=== PATIENT | male | born 1970 | race Caucasian/White ===

== ENCOUNTER 2019-05-14 11:20 | Emergency (ER) | payer OTHER, SELFPAY ==
--- NOTE | ~2019-05-14 | XR_ITS ---
XR abdomen/kub 1V 05/14/2019 11:50 Indication: Left flank pain and hematuria Procedure: KUB Comparison: No prior studies for comparison. Findings: Left pelvic calcification overlying the sacrum/coccyx measuring 5 mm. This is suspicious fo r a UVJ stone. There are additional pelvic calcifications, likely pelvic phleboliths. Bowel gas patte rn is nonobstructive. Impression: 1: Possible left UVJ stone measuring 5 mm. Reviewed, dictated and finalized at location A. 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
[2019-05-14 11:27] VITALS: BP 128/84; PULSE 77; RESP 16; TEMP 36.4; O2SAT 100
--- NOTE | 2019-05-14 11:28 | ED.GENADULT ---
HPI - General Adult General Chief complaint: Urogenital-Male Stated complaint: abdominal pain/Pos UTI Time Seen by Provider: 05/14/19 11:40 Source: patient Mode of arrival: ambulatory Limitations: no limitations History of Present Illness HPI narrative: 48-year-old male patient presents to the [facility] with complaints of left flank pain that radiates down to the left groin. Patient states he has had some blood in his urine this week. Patient states he does have a history of kidney stones and has been having this pain for about a week and a half now. Patient states he did pass some kidney stones about 3 or 4 days ago and states that his urine started to clear up then and the pain did ease so he thought that he had passed some of that it was over. Patient states the pain started up again about 2 days ago and he is concerned that he might have a UTI caused by the kidney stones. Denies any fevers, nausea, vomiting or diarrhea. Related Data Allergies Allergy/AdvReac Type Severity Reaction Status Date / Time No Known Allergies Allergy Unverified 11/28/17 09:28 Review of Systems Review of Systems: Narrative: CONSTITUTIONAL: Denies fever, chills, or sweats. EYES: Denies visual changes, redness, or discharge. ENT: Denies rhinorrhea, congestion, sore throat, or otalgia. CARDIOVASCULAR: Denies chest pain, palpitations, or edema. RESPIRATORY: Denies cough or dyspnea. GASTROINTESTINAL: Denies abdominal pain, nausea, vomiting, or diarrhea. GENITOURINARY: Positive dysuria and hematuria. SKIN: Denies rash or itching. MUSCULOSKELETAL: Positive left flank pain that radiates to the left groin joint pain, or myalgia. NEUROLOGIC: Denies headache, numbness, or weakness. PSYCHIATRIC: Denies anxiety or depression. PMFSH Social History Social History Smoking status: Former smoker Smoking end date: 03/09/13 Alcohol intake: never Comments At the time of my signature I agree with nursing past medical history, surgical, social, and family history. There is no relevant family history pertinent to the presenting complaint. Exam Narrative: Exam Narrative: GENERAL: Well-appearing, well-nourished, and in no acute distress. HEAD: Normocephalic, atraumatic. EYES: PERRLA and EOMI. ENT: Nares clear, no rhinorrhea or epistaxis. Mucous membranes moist. NECK: Supple. No lymphadenopathy CHEST: Clear to auscultation. No respiratory distress. HEART: Regular rate and rhythm. No murmur heard. Normal peripheral pulses. ABDOMEN: Soft, flat, nondistended. No guarding, rebound tenderness, or rigid. No pulsatilla masses. Bowel sounds present in all four quadrants. No organomegaly. Negative Villalta?s sign. No periumbicial tenderness. No Supra public tenderness or distension. Good femoral pulses bilaterally. No hernia noted. No scars or surface trauma. No CVA tenderness on percussion EXTREMITIES: Normal range of motion. No edema. SKIN: Warm, dry, no rash. NEURO: No focal deficits. Alert and oriented x3. Course Reevaluation(s) Reevaluation #1: Notify patient that it does appear that he is got a UVJ stone that is most likely causing his symptoms. Discussed with patient that these do have the potential to be obstructive. Discussed with patient that we will go ahead and give him some [place] for his pain as well as some Flomax to see if he is able to pee it out but if he does not feel like the pain is moving and continues to have worsening pain and he would need to go the ER for further evaluation to see if this is obstructing. Patient verbalized understanding denies any other questions or concerns at this time a copy of patient's x-ray results were provided to them today. Date: 05/14/19 Time: 12:06 Vital Signs Vital signs: Vital Signs Temperature 36.4 C 05/14/19 11:27 Pulse Rate 77 05/14/19 11:27 Respiratory Rate 16 05/14/19 11:27 Blood Pressure 128/84 05/14/19 11:27 Pulse Oximetry 100 05/14/19 11:27
== END 2019-05-14 12:10 | disposition home or self-care (01) ==
PROVIDERS: Emergency Provider Nurse Practitioner Family; PCP Family Medicine
DX: N20.1 Calculus of ureter (principal); Z87.891 Personal history of nicotine dependence
CPT/HCPCS: 74018; 81003; 99213; G0463

== ENCOUNTER 2019-05-14 23:46 | Emergency (ER) | payer OTHER, SELFPAY ==
--- NOTE | ~2019-05-14 | CT_ITS ---
EXAMINATION: CT abdomen pelvis wo con DATE: 05/15/2019 00:30 INDICATION: Left flank pain TECHNIQUE: Computed tomography (CT) of the abdomen and pelvis was performed without intravenous contr ast. The dose-length product was 318.35 mGy-cm. Automated exposure control and iterative reconstructi on technique were employed. COMPARISON: None. FINDINGS: Lung bases are unremarkable. No significant pleural or pericardial effusion. Heart size is normal. There is a 6 mm left UVJ stone with mild hydroureteronephrosis. There is periureteral and per inephric edema. Fatty infiltration of the liver. Spleen, pancreas, adrenal glands are unremarkable. Probable renal cy sts. Bowel pattern nonobstructive. Normal appendix. No focal bowel abnormality. No free air or free f luid. Mild prostate enlargement. IMPRESSION: 1. 6 mm left UVJ stone with mild hydronephrosis. Reviewed, dictated and finalized at location A.
[2019-05-14 23:50] VITALS: BP 141/97; PULSE 85; RESP 16; TEMP 35.6; O2SAT 100
--- NOTE | 2019-05-15 00:12 | ED.ABDPAIN ---
HPI - Abdominal Pain General Chief Complaint: Abdominal Pain Stated Complaint: right flank pain Time Seen by Provider: 05/15/19 00:01 Source: patient and RN notes reviewed Mode of arrival: ambulatory Limitations: no limitations History of Present Illness HPI narrative: Pt is a 48 y/o male presenting to the ED c/o flank pain. Pt reports he started experiencing lt sided flank pain a week ago that worsened tonight. Pt states he presented to [facility] earlier tonight where he was prescribed Flomax and Hydrocodone after an X-Ray revealed a kidney stone. Pt states he has a Hx of about 7 other kidney stones but notes his last episode was years ago. 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 Pt also reports difficulty urinating. Pt states his PCP is Dr. Londono. Pertinent past history: kidney stones Onset (ago): week(s) (1) Location: L flank Associated symptoms: other (Difficulty urinating) Related Data Allergies Allergy/AdvReac Type Severity Reaction Status Date / Time No Known Allergies Allergy Verified 05/15/19 00:00 Review of Systems Review of Systems: All systems reviewed & are unremarkable except as noted in HPI and below Genitourinary: Genitourinary: Reports other (Difficulty urinating) Musculoskeletal: Musculoskeletal: Reports other (Lt flank pain) PMFSH Past Medical History Medical History Kidney stones x8 Surgical History Surgical History No significant past surgical history Social History Social History Smoking status: Former smoker Smoking end date: 03/09/13 Alcohol intake: never Exam Const: General: cooperative, alert, acute distress and other (Moaning; Rolling around on stretcher) Nutritional Appearance: well nourished Orientation/consciousness: patient oriented x3 Limitations: no limitations HENMT: Mouth: Yes lip normal Resp: Effort & Inspection: normal respiratory effort Auscultation: clear to auscultation bilaterally Cardio: Rate: regular rate Rhythm: regular rhythm GI: GI Palp: Yes Tenderness to palpation present (GI) (Lt flank tenderness) Skin: General skin exam: pallor Neuro: General: patient oriented x3 Cognition (Neuro): normal cognition Speech: normal speech Extrem: General: normal to inspection, full ROM and no clubbing, cyanosis or edema Psych: Mental Status: mental status grossly normal Affect: normal affect Attitude: cooperative Course Course Emergency Course: Patient with improvement in symptoms after Toradol. Pain starting to come back, hydrocodone given. Patient with UVJ stone. Counseled on expectant management. Advised importance of urology follow-up. Reevaluation(s) Reevaluation #1: Daylight Savings Time For Daylight Savings Time Ending in the Fall - Clocks are moved back. For Daylight Savings Time Beginning in the Spring - Clocks are moved ahead. For [facility], the time of change occurs at 0200 hrs. Time is taken from the field observer. This entry on the patient's chart recognizes the change in time reflected during documentation. Example: 2 entries for vital signs may be charted for 0200 hrs. Vital Signs Vital signs: Vital Signs Temperature 96.0 F L 05/14/19 23:50 Pulse Rate 85 05/14/19 23:50 Respiratory Rate 16 05/14/19 23:50 Blood Pressure 141/97 H 05/14/19 23:50 Pulse Oximetry 100 05/14/19 23:50 Temperature 96.0 F L 05/14/19 23:50 Pulse Rate 80 05/15/19 04:39 Respiratory Rate 20 05/15/19 04:39 Blood Pressure 127/80 05/15/19 04:39 Pulse Oximetry 100 05/15/19 04:39 MDM - Abdominal Pain Medical Records Attestation: I reviewed the patient's medical records. Lab Data Attestation: I reviewed the patient's lab results. Result diagrams: 05/15/19 00:08
[2019-05-15 00:15] LABS: Basophils Percent Auto 0.5 % (0.2-1.2); Eosinophils Absolute Auto 0.2 K/mm3 (0-0.3); Eosinophils Percent Auto 2.5 % (0-4.4); Hematocrit 43.2 % (42.0-52.0); Hemoglobin 14.3 g/dL (14.0-18.0); Immature Granulocyte Absolute 0.03 K/mm3 (0.00-0.031); Immature Granulocyte Percent A 0.4 % (0-0.5); Lymphocytes Absolute Auto 3.02 K/mm3 (0.9-3.2); Lymphocytes Percent Auto 38.2 % (18.3-44.2); Mean Corpuscular HGB Conc 33.1 g/dl (32-36); Mean Corpuscular Hemoglobin 28.1 pg (26-34); Mean Corpuscular Volume 84.9 fl (80-100); Mean Platelet Volume 10.7 fl (7.4-10.4); Monocytes Absolute Auto 0.8 K/mm3 (0.1-0.6); Monocytes Percent Auto 9.9 % (2.6-8.5); Neutrophils Absolute Auto 3.8 K/mm3 (1.3-6.7); Neutrophils Percent Auto 48.5 % (45.5-73.1); Platelet Count Result 200 k/mm3 (150-375); Red Blood Count 5.09 M/mm3 (4.6-6.20); Red Cell Distribution Width 12.1 % (11.5-14.5); White Blood Count 7.9 K/mm3 (4.5-10.0)
[2019-05-15] MEDS: KETOROLAC 30 MG/ML VIAL (*BKC) IV PUSH (00:20)
[2019-05-15 00:31] LABS: Alanine Aminotransferase 56 U/L (4-50); Albumin Level 4.3 g/dL (3.5-5.1); Alkaline Phosphatase 62 U/L (38-126); Aspartate Amino Transferase 38 U/L (17-59); Bilirubin,Total 0.3 mg/dL (0.2-1.3); Blood Urea Nitrogen 20 mg/dL (9-20); Carbon Dioxide 27 mmol/L (22-30); Chloride 104 mmol/L (98-107); Estimated CRCL calculation 76 ml/min; Estimated Glomerular Filt Rate > 60; Glucose 129 mg/dL (75-110); Potassium 3.6 mmol/L (3.4-5.0); Sodium 139 mmol/L (137-145)
[2019-05-15 00:45] LABS: Add Urine Microscopic? YES; Appearance Urine Clear (Clear); Bacteria Urine Trace /hpf; Bilirubin Urine Negative (Negative); Blood Urine 3+ (Negative); Color Urine Yellow (Yellow); Glucose Urine UA Negative (Negative); Ketones Urine Negative (Negative); Leukocyte Esterase Ur Negative LEU/UL (Negative); Mucus Urine Rare /lpf; Nitrate Urine Negative (Negative); Protein Urine Negative (Negative); RBC Urine >75 /hpf (0-2); Specific Grav Ur 1.023 (1.001-1.035); Squamous Epithelial Cell Urine Rare /hpf (Few); Urobilinogen Urine Negative mg/dL (<2.0)
[2019-05-15 04:39] VITALS: BP 127/80; PULSE 80; RESP 20; O2SAT 100
[2019-05-15 06:05] VITALS: BP 114/68; PULSE 79; RESP 20; O2SAT 100
== END 2019-05-15 06:06 | disposition home or self-care (01) ==
PROVIDERS: Emergency Provider Emergency Medicine; PCP Family Medicine
DX: N13.2 Hydronephrosis with renal and ureteral calculous obstruction (principal); Z87.442 Personal history of urinary calculi; Z87.891 Personal history of nicotine dependence
CPT/HCPCS: 36415; 74176; 80053; 81001; 85025; 96374; 99284; A9270; J1885

== ENCOUNTER 2019-05-15 14:05 | Day surgery (SDC) | payer OTHER, SELFPAY ==
--- NOTE | ~2019-05-15 | XR_ITS ---
EXAMINATION: XR retrograde pyelogram LT EXAM DATE: 05/15/2019 18:31 INDICATION: Left-sided stone removal. TECHNIQUE: Fluoroscopy used during XR retrograde pyelogram LT performed by Dr. Poli Mead MD. The DAP for this procedure was 0.16 mGym2. Cine run(s) available for review. FINDINGS: Left ureter was cannulated, injected. Image distal portion of the ureter is unremarkable. Correlate with procedure note. IMPRESSION: Fluoroscopy used during XR retrograde pyelogram LT. Reviewed, dictated and finalized at location A.
[2019-05-15 14:24] VITALS: BP 150/90; PULSE 97; RESP 18; TEMP 36.4; O2SAT 98
[2019-05-15 14:45] LABS: Basophils Percent Auto 0.5 % (0.2-1.2); Eosinophils Absolute Auto 0.2 K/mm3 (0-0.3); Eosinophils Percent Auto 2.8 % (0-4.4); Hematocrit 43.5 % (42.0-52.0); Hemoglobin 14.5 g/dL (14.0-18.0); Immature Granulocyte Absolute 0.02 K/mm3 (0.00-0.031); Immature Granulocyte Percent A 0.3 % (0-0.5); Lymphocytes Absolute Auto 2.37 K/mm3 (0.9-3.2); Lymphocytes Percent Auto 30.5 % (18.3-44.2); Mean Corpuscular HGB Conc 33.3 g/dl (32-36); Mean Platelet Volume 10.9 fl (7.4-10.4); Monocytes Absolute Auto 0.9 K/mm3 (0.1-0.6); Monocytes Percent Auto 11.7 % (2.6-8.5); Neutrophils Absolute Auto 4.2 K/mm3 (1.3-6.7); Neutrophils Percent Auto 54.2 % (45.5-73.1); Platelet Count Result 198 k/mm3 (150-375); Red Blood Count 5.18 M/mm3 (4.6-6.20); Red Cell Distribution Width 12.1 % (11.5-14.5); White Blood Count 7.8 K/mm3 (4.5-10.0)
--- NOTE | 2019-05-15 14:50 | ED.ABDPAIN ---
HPI - Abdominal Pain General Chief Complaint: Abdominal Pain Stated Complaint: kidney stone Time Seen by Provider: 05/15/19 14:11 Source: patient Mode of arrival: ambulatory Limitations: no limitations History of Present Illness HPI narrative: A 48 y/o male pt presents to the ED, with c/o constant, severe, lt sided flank and groin pain x 8 days that is worsening. Pt was seen in this ED earlier this AM with the same complaint and had a CT scan that showed a 6 mm UVG stone in his lt ureter. He received Toradol and Hydrocodone in the department and his pain improved and he was discharged home. He has taken the medications he was prescribed (Hydrocodone x 20mg), but states that these are not helping to alleviate his pain. Pt notes standing up and pacing helps to alleviate his pain. He reports having hematuria x 10 days, nausea, and is diaphoretic, but denies V/D, or fever. MD elicited complaint: flank pain (lt side) Pertinent past history: kidney stones Onset (ago): day(s) (8) Pain Consistency: constant (worsening) Location: L flank Severity: severe Radiation: other (lt groin) Relieving factors: movement (standing up and pacing) Associated symptoms: nausea, hematuria and other (diaphoretic) Treatments prior to arrival: other (Hydrocodone x 20mg ) Related Data Allergies Allergy/AdvReac Type Severity Reaction Status Date / Time No Known Allergies Allergy Verified 05/15/19 00:00 Review of Systems Review of Systems: All systems reviewed & are unremarkable except as noted in HPI and below Constitutional: Constitutional: Denies fever(s) and Reports other (diaphoretic) Gastrointestinal: Gastrointestinal: Denies diarrhea, Reports nausea and Denies vomiting Genitourinary: Genitourinary: Reports hematuria (x 10 days), Reports flank pain (lt sided) and Reports other (lt sided groin pain) PMF Past Medical History Medical History (Updated 05/15/19 @ 16:39 by Aldo Newman MD) History of frequent headaches Kidney stones x8 Surgical History Surgical History No significant past surgical history Social History Social History Smoking status: Former smoker Smoking end date: 03/09/13 Alcohol intake: never Gender identity (if verbalized by the patient): Male Exam Const: General: healthy appearing and well developed; No comfortable Nutritional Appearance: well nourished Orientation/consciousness: patient oriented x3 (alert) and Other orientation findings (Alert) Limitations: no limitations HENMT: Head: normocephalic and atraumatic Ears: external ears normal General nose exam: No nasal discharge present and no epistaxis Face and sinus: face symmetric Mouth: Yes lip normal, Yes tongue normal and Yes moist mucous membranes Throat: other (No exudate, no erythema) Eyes: Conjunctivae: conjunctivae normal Sclera: sclerae normal EOM: EOMs intact bilaterally Neck: Neck: full ROM, no lymphadenopathy and supple Thyroid: thyroid normal Chest: Chest palpation & inspection: no tenderness Resp: Effort & Inspection: normal respiratory effort Auscultation: clear to auscultation bilaterally, no rales, no rhonchi, no wheezes and other (breath sounds equal) Cardio: Rate: regular rate Rhythm: regular rhythm Heart sounds: no gallops and no murmurs GI: Inspection: non-distended GI Palp: Yes abdominal tenderness (mild lt sided) and Yes Soft to palpation Auscultation: other (bowel sounds present) : General: Yes CVA tenderness on the left Back/Spine/Pelvis: Thoracic/Lumbar Spine: thoracic and lumbar spine normal to inspection Skin: General skin exam: normal color, no rashes or lesions noted and other (diaphoretic) Neuro: General: patient oriented x3 (alert), moves all extremities and no focal motor deficits Cranial nerves: Yes facial symmetry Speech: normal speech Motor exam (neuro): Motor abnormalities not present
[2019-05-15] MEDS: KETOROLAC 30 MG/ML VIAL (*BKC) IV PUSH (14:53)
[2019-05-15 14:56] LABS: Blood Urea Nitrogen 17 mg/dL (9-20); Calcium 8.8 mg/dL (8.4-10.2); Carbon Dioxide 23 mmol/L (22-30); Chloride 104 mmol/L (98-107); Estimated CRCL calculation 70 ml/min; Estimated Glomerular Filt Rate > 60; Glucose 109 mg/dL (75-110); Potassium 3.7 mmol/L (3.4-5.0); Sodium 137 mmol/L (137-145)
--- NOTE | 2019-05-15 15:17 | PC.NURSE ---
ADVISED PT TO LAY IN BED DUE TO INCREASED FALL RISK FROM THE AMOUNT OF PAIN MEDICINE HE SAYS HE TOOK PRIOR TO HIS VISIT IN THIS ER. PT REFUSES TO STAY IN BED AND CONTINUES TO PACE AT BEDSIDE. STAY CUTTER NOTIFIED.
[2019-05-15 16:10] VITALS: BP 152/89; PULSE 88; RESP 16; O2SAT 97
[2019-05-15] MEDS: CIPROFLOXACIN 400 MG/D5W 200ML 200 ML 200 MG IVPB (17:11)
--- NOTE | 2019-05-15 17:17 | WPDANESEPP ---
Anes - Eval Pre Procedure Procedure: Cysto with stent Date/Time: 05/15/19 17:17 Surgeon: Alyce Pre Op Diagnosis: kidney stone Patient Data Age: 48 Gender: M Height: 5 ft 11 in Weight: 92 kg Last Vital Signs Temp 97.6 F 05/15/19 14:24 Pulse 88 05/15/19 16:10 Resp 16 05/15/19 16:10 BP 152/89 H 05/15/19 16:10 Pulse Ox 97 05/15/19 16:10 Allergies Allergy/AdvReac Type Severity Reaction Status Date / Time No Known Allergies Allergy Verified 05/15/19 00:00 Home Medications Medication Instructions Recorded Confirmed Type hydrocodone-acetaminophen [[place]] 1 tablet PO Q6H PRN #12 tablet 05/14/19 Rx tamsulosin [Flomax] 0.4 mg PO DAILY #10 cap 05/14/19 Rx ketorolac 10 mg PO Q6H PRN 5 Days #20 tablet 05/15/19 Rx Laboratory Tests 05/15/19 05/15/19 14:29 14:29 WBC 7.8 K/mm3 K/mm3 (4.5-10.0) RBC 5.18 M/mm3 M/mm3 (4.6-6.20) Hgb 14.5 g/dL g/dL (14.0-18.0) Hct 43.5 % % (42.0-52.0) MCV 84.0 fl fl (80-100) MCH 28.0 pg pg (26-34) MCHC 33.3 g/dl g/dl (32-36) RDW 12.1 % % (11.5-14.5) Plt Count 198 k/mm3 k/mm3 (150-375) MPV 10.9 fl H fl (7.4-10.4) Immature Gran % (Auto) 0.3 % % (0-0.5) Neut % (Auto) 54.2 % % (45.5-73.1) Lymph % (Auto) 30.5 % % (18.3-44.2) Millard % (Auto) 11.7 % H % (2.6-8.5) Eos % (Auto) 2.8 % % (0-4.4) Baso % (Auto) 0.5 % % (0.2-1.2) Lymph # (Auto) 2.37 K/mm3 K/mm3 (0.9-3.2) Millard # (Auto) 0.9 K/mm3 H K/mm3 (0.1-0.6) Eos # (Auto) 0.2 K/mm3 K/mm3 (0-0.3) Baso # (Auto) 0.0 K/mm3 K/mm3 (0.0-0.1) Abs Immat Gran (auto) 0.02 K/mm3 K/mm3 (0.00-0.031) Absolute Neuts (auto) 4.2 K/mm3 K/mm3 (1.3-6.7) Absolute Nucleated RBC 0.0 K/mm3 K/mm3 (0.0-0.012) Nucleated RBC % 0.0 % % (0.0-0.2) Sodium 137 mmol/L mmol/L (137-145) Potassium 3.7 mmol/L mmol/L (3.4-5.0) Chloride 104 mmol/L mmol/L (98-107) Carbon Dioxide 23 mmol/L mmol/L (22-30) BUN 17 mg/dL mg/dL (9-20) Creatinine 1.20 mg/dL mg/dL (0.7-1.3) Estim Creat Clear Calc 70 ml/min ml/min Estimated GFR > 60 (59 - ) Glucose 109 mg/dL mg/dL (75-110) Calcium 8.8 mg/dL mg/dL (8.4-10.2) Patient hx anesthesia problems: none Family hx anesthesia problems: none [facility] Past Medical History Medical History History of frequent headaches Kidney stones x8 Surgical History Surgical History No significant past surgical history Social History Social History Smoking status: Former smoker Smoking end date: 03/09/13 Alcohol intake: never Gender identity (if verbalized by the patient): Male Exam Day of Procedure 05/15/19 17:17
--- NOTE | 2019-05-15 17:51 | WPDURCON ---
Assessment and Plan Assessment and plan (1) Obstruction of left ureteropelvic junction (UPJ) due to stone: Code(s): N20.1 - Calculus of ureter Status: Acute Assessment and Plan: Plan for cystoscopy, possible left ureteroscopy, possible laser lithotripsy, possible left stent placement (2) Renal colic on left side: Code(s): N23 - Unspecified renal colic Status: Acute (3) Hydronephrosis: Code(s): N13.30 - Unspecified hydronephrosis Status: Acute Urology Consult Note HPI Date Seen: 05/15/19 Primary Care Provider: Frankie Londono MD Consult Narrative Narrative: Itz Goncalves is a 48 year old male with complaints of left sided pain. CT in ER yesterday noted a 6mm left UVJ stone with hydro. Patient was discharged home but he returned with intractable. Patient notes a stone episode requiring treatment in [facility] previously Review of Systems Review of Systems: All systems reviewed & are unremarkable except as noted in HPI and below (left sided pain) PMFSH Past Medical History Medical History History of frequent headaches Kidney stones x8 Surgical History Surgical History No significant past surgical history Social History Social History Smoking status: Former smoker Smoking end date: 03/09/13 Alcohol intake: never Gender identity (if verbalized by the patient): Male Meds Home Medications and Allergies Home Medications Medication Instructions Recorded Confirmed Type hydrocodone-acetaminophen [[place]] 1 tablet PO Q6H PRN #12 tablet 05/14/19 Rx tamsulosin [Flomax] 0.4 mg PO DAILY #10 cap 05/14/19 Rx ketorolac 10 mg PO Q6H PRN 5 Days #20 tablet 05/15/19 Rx Allergies Allergy/AdvReac Type Severity Reaction Status Date / Time No Known Allergies Allergy Verified 05/15/19 00:00 Vital Signs Vital Signs - 24 hr 05/15/19 14:24 05/15/19 16:10 Temperature 36.4 C Pulse Rate 97 88 Respiratory Rate 18 16 Blood Pressure 150/90 H 152/89 H Pulse Oximetry 98 97 Exam Const: General: cooperative, healthy appearing, comfortable and no acute distress HENMT: Head: normal to inspection Resp: Effort & Inspection: normal respiratory effort and able to speak in complete sentences Skin: General skin exam: normal color and no rashes or lesions noted Results Labs CBC & Chem 7: 05/15/19 14:29 05/15/19 14:29 Labs: Short CBC 05/15/19 Range/Units 14:29 WBC 7.8 (4.5-10.0) K/mm3 Hgb 14.5 (14.0-18.0) g/dL Hct 43.5 (42.0-52.0) % Plt Count 198 (150-375) k/mm3 BMP 05/15/19 14:29 Sodium 137 Potassium 3.7 Chloride 104 Carbon Dioxide 23 BUN 17 Creatinine 1.20 Glucose 109 Calcium 8.8
[2019-05-15] MEDS: LACTATED RINGERS 1,000 ML 30 ML IV CONT (18:00)
--- NOTE | 2019-05-15 18:18 | WPDANESEFPP ---
Anes - Eval Final PreProcedure Day of Procedure 05/15/19 18:18 Patient weight: overweight Heart: regular rate and rhythm Lungs: clear to auscultation and normal air movement Airway: Mallampati scale class II Neurological: alert and oriented Last oral intake: >/= 8 hours ASA classification: II Emergent: no Anesthetic plan: proceed Anesthesia type and monitoring: general GIVS and LMA Informed Consent: The patient's anesthetic plan and its attendant risks and benefits were discussed with the patient/family/POA. Questions were solicited and answers provided to the satisfaction of the patient/family/POA.
[2019-05-15] MEDS: LIDOCAINE HCL 2% GEL UROJET 10 ML PKG MUCOUS MEM (18:19)
[2019-05-15 18:34] VITALS: BP 120/78; PULSE 88; RESP 16; TEMP 36.4; O2SAT 97
--- NOTE | 2019-05-15 18:39 | PM.OP ---
Procedure Note - Brief Procedure Note - Brief Date of procedure: 05/15/19 Pre-op diagnosis: Kidney Stone Surgeon: Homero Mead MD Post operative Left UVJ stone Prcoedure: Cystoscopy, left ureteroscopy stone extraction and left retrograde pyelogram Anesthesia: LMA and local EBL: <20ml Complications: none Dispostion: Stable to PACU
[2019-05-15 18:50] VITALS: BP 118/74; PULSE 87; RESP 18; O2SAT 98
[2019-05-15 19:04] VITALS: BP 115/78; PULSE 86; RESP 16; O2SAT 96
--- NOTE | 2019-05-16 00:18 | OP_ITS ---
DATE OF PROCEDURE: 05/15/2019 PREOPERATIVE DIAGNOSIS: Left ureterovesical junction stone with hydronephrosis and renal colic. POSTOPERATIVE DIAGNOSIS: Left ureterovesical junction stone with hydronephrosis and renal colic. PROCEDURE PERFORMED: Cystoscopy, left ureteroscopy, stone extraction, left retrograde pyelogram. ANESTHESIA: LMA with local. ESTIMATED BLOOD LOSS: Less than 20 cc. INDICATIONS FOR PROCEDURE: The patient is a 48-year-old gentleman presented to the [facility] yesterday with left flank pain. CT scan noted a 6 mm UPJ stone with hydronephrosis. He was sent home after he was made comfortable with some narcotics and Toradol, but returned again today with recurrence of pain despite taking 20 mg of hydrocodone. We elected to proceed with stone extraction based upon that. DESCRIPTION OF PROCEDURE: A time-out was performed and consent was obtained. The patient was given preoperative antibiotics, brought to the operating room and placed in dorsal lithotomy position. He was prepped and draped in sterile fashion. Viscous lidocaine jelly was introduced urethra for local anesthetic. A 22-Khmer cystoscope was then inserted. The urethra was visually normal. There was mild bilobar hypertrophy of the prostate. Upon entering the bladder, the bladder was thoroughly inspected. There was no evidence of tumor, stones, or carcinoma in situ. At the left ureteral orifice you can note a stone right there at the ureteral orifice. We were able to insert the cystoscope with the stent grasper and able to grasp the stone under the left ureteral scope in its entirety, sent off for analysis. To verify that we did indeed remove all the stone. We then performed a left retrograde pyelogram using a 5-Khmer angiographic and noted no filling defects throughout the remaining portions of the ureter. At that point, we removed the angiographic, watch the left ureteral orifice effluxed clear urine and concluded the procedure by emptying the bladder and taking the cystoscope out. There were no complications. DISPOSITION: Stable en route to PACU. D I MT: Olivier
== END 2019-05-15 19:35 | disposition home or self-care (01) ==
LOC: ANHED 16:39 → ANHSURGERY 18:38
PROVIDERS: Emergency Provider Emergency Medicine; PCP Family Medicine; Visit Provider Urology
PROC: (CPT 52352; principal; 2019-05-15 17:35)
DX: N13.2 Hydronephrosis with renal and ureteral calculous obstruction (principal); N40.0 Benign prostatic hyperplasia without lower urinary tract symptoms; Z87.891 Personal history of nicotine dependence
CPT/HCPCS: 52352; 36415; 74420; 80048; 82365; 85025; 88300; 96365; 96375; 99285; A9270; C1887; J0744; J1885; J3010; J7120; Q9966

== ENCOUNTER 2022-02-24 09:59 | Outpatient (CLI) | payer OTHER, SELFPAY ==
--- NOTE | ~2022-02-24 | MR_ITS ---
MRI of the cervical spine Clinical History: Cervical radiculopathy Technique: Axial T2-weighted and gradient images, and sagittal T1-weighted, T2-weighted, and T2 fat-s at images were acquired. COMPARISON: 12/04/2017 Findings: There is no fracture or subluxation of the cervical spine. Vertebral bodies maintain normal height and alignment. No significant bone marrow signal abnormality identified. At C2-C3, there is no disc bulge or herniation. No spinal canal stenosis, cord compression, or neural foraminal narrowing. At C3-C4, there is no significant disc bulge or herniation. No spinal canal stenosis or cord compress ion. There is mild bilateral neural foraminal narrowing. At C4-C5, there is minimal disc bulge, minimal flattening of the ventral cord. There is probable mini mal bilateral neural foraminal narrowing. At C5-C6, disc bulge results in minimal flattening of the ventral cord. There is bilateral neural for aminal narrowing. At C6-C7, there is mild disc osteophyte complex, with minimal flattening of the ventral cord on the r ight side. There is bilateral neural foraminal narrowing. No abnormal signal noted in the spinal cord. Paravertebral soft tissues are unremarkable. Impression: Mild flattening of the ventral cord related to disc bulges at C4-C5, C5-C6, and C6-C7. Multilevel neural foraminal narrowing, worst at C5-C6 and C6-C7. Reviewed, dictated and finalized at location [] NGUAL TEACHER AIDE Impression: Mild flattening of the ventral cord related to disc bulges at C4-C5, C5-C6, and C6-C7. Multilevel neural foraminal narrowing, worst at C5-C6 and C6-C7.
== END 2022-02-24 10:00 | disposition home or self-care (01) ==
LOC: ANHIMG 10:03
PROVIDERS: Visit Provider Physical Medicine & Rehabilitation
DX: M54.12 Radiculopathy, cervical region (principal); M50.222 Other cervical disc displacement at C5-C6 level; M50.223 Other cervical disc displacement at C6-C7 level; M50.221 Other cervical disc displacement at C4-C5 level
CPT/HCPCS: 72141

== ENCOUNTER 2023-11-10 14:03 | Emergency (ER) | payer BC, SELFPAY ==
[2023-11-10 14:28] VITALS: BP 144/88; PULSE 80; RESP 16; TEMP 35.8; O2SAT 99
[2023-11-10 16:35] LABS: EDINFLUASCREEN Negative; EDINFLUBSCREEN Negative
--- NOTE | 2023-11-14 10:22 | ED.URI ---
HPI - URI/Sore Throat General Chief Complaint: Upper Respiratory Infection Stated Complaint: bodyaches/ Headache/ SOB Time Seen by Provider: 11/10/23 14:54 Source: patient, RN notes reviewed and old records reviewed Mode of arrival: ambulatory Limitations: no limitations History of Present Illness HPI Narrative: 53-year-old male to [facility] for cough, nasal congestion, body aches, back pain, headache, fatigue for 2 days. Patient denies fever, chills. Patient reports recent travel and believes he contracted something while traveling. Patient denies chest pain, shortness of breath, sore throat, pertinent medical history, allergies. patient hypertensive in triage. Patient able to tolerate fluids by mouth. Patient resting in exam room comfortably, appears tired. Respirations even and nonlabored. Patient in no acute distress. Related Data Allergies Allergy/AdvReac Type Severity Reaction Status Date / Time No Known Allergies Allergy Verified 12/29/19 16:05 Review of Systems Review of Systems: All systems reviewed & are unremarkable except as noted in HPI and below Constitutional: Constitutional: Reports as per HPI, Reports body ache(s), Denies chills, Reports fatigue and Reports headache(s) Eyes: Eyes: Reports no additional eye complaints ENT: Reports as per HPI and Reports nasal congestion Cardiovascular: Cardiovascular: Reports no additional cardiovascular complaints, Denies chest pain and Denies dyspnea Respiratory: Respiratory: Reports as per HPI, Reports cough and Denies dyspnea Musculoskeletal: Musculoskeletal: Reports as per HPI, Reports back pain and Reports myalgias Neurologic: Reports system reviewed and no additional complaints, except as documented Psychiatric: Psychiatric: Reports no additional psychiatric complaints [facility] Past Medical History Medical History (Updated 11/11/23 @ 00:00 by [facility] Alia) History of frequent headaches Kidney stones x8 Surgical History Surgical History No significant past surgical history Social History Social History (Updated 12/29/19 @ 16:04 by Giana Wilder MA) Smoking status: Former smoker Smoking end date: 03/09/13 Alcohol intake: never Substance use: never Living arrangements: with family Occupation/Education: occupation Gender identity (if verbalized by the patient): Male Comments At the time of my signature, I reviewed and agree with the nursing past medical, surgical, social, and family history. There is no relevant family history pertinent to the patient complaint. Exam Const: General: cooperative, no acute distress, alert, ill appearing acutely, tired appearing, uncomfortable and well nourished Nutritional Appearance: well nourished Orientation/consciousness: patient oriented x3 Limitations: no limitations HENMT: Head: normal to inspection Ears: external ears normal, Abnormal EAC present excessive cerumen on the right and TM abnormal erythematous on the right and with fluid behind the TM on the right Face/Nose/Sinus: Normal external nose present, Abnormal mucous membranes and turbinates present boggy and erythematous, normal facial exam, No erythema and No edema Face and sinus: normal facial exam, no erythema and no edema Mouth: Yes Normal oral and palatal mucosa present Throat: postnasal drainage Eyes: General: appearance normal, both eyes and all related structures Neck: Neck: normal visual inspection, full ROM and no meningeal signs Lymphatic: no lymphadenopathy noted and no lymphedema noted Chest: Chest palpation & inspection: normal inspection of the chest Resp: Effort & Inspection: normal respiratory effort and able to speak in complete sentences Auscultation: clear to auscultation bilaterally Cardio: Jugular venous distension: no JVD Rate: regular rate Rhythm: regular rhythm Back/Spine/Pelvis: Cervical Spine: cervical ROM normal Skin: Ge
== END 2023-11-10 16:04 | disposition home or self-care (01) ==
PROVIDERS: Emergency Provider Nurse Practitioner Family
DX: H66.92 Otitis media, unspecified, left ear (principal); H61.22 Impacted cerumen, left ear; Z20.822 Contact with and (suspected) exposure to COVID-19; Z87.891 Personal history of nicotine dependence
CPT/HCPCS: 69210; 87426; 87804; 99213; G0463